=== PATIENT | female | born 1990 | race Two or more races ===

== ENCOUNTER 2016-07-22 12:16 | Emergency (ER) | payer MEDICAID ==
[~2016-07-22 12:16] MED LIST: ADVANCED PAIN200 MG PO; ADVIL MIGRAINE200 MG PO; CALCIUM CARBON500 M2 PO; CIPRO500 MG PO; COLACE100 M1 PO; COLACE100 MG PO; DULCOLAX10 MG RC; IBUPROFEN600 MG PO; IBUPROFEN800 M1 PO; MAG-AL PLUS XS30 M1 PO; MILK OF MAGNESIA PO; MOTRIN600 MG PO; NAUSEA; NO HOME MEDICATION XX; NORCO 5/325 TAB1 TAB PO; NORCO 7.5/3251 TA1 PO; PHENERGAN W/CO120 ML PO; PRENATAL-U CAPS1 CAP PO; PRENATAL1 EACH PO; PYRIDIUM200 M1 PO; SENOKOT-S TABL1 EACH PO; ZOFRAN ODT4 MG PO; ZOFRAN4 M1 PO; ZOFRAN4 MG PO; [UNRECOGNIZED DRUG - REMARK]
[2016-07-22] MEDS ORDERED: NO HOME MEDICATION (12:37)
[2016-07-22 13:28] LABS: BASO % 0.3 % (0-2); EOSINOPHIL ABSOLUTE COUNT 0.3 tho/cmm (0.0-0.7); HCT-HEMATOCRIT 35.5 % (34.0-49.0); HGB-HEMOGLOBIN 11.1 gm/dl (12.0-15.5); IMMATURE GRANULOCYTES ABSOLUTE 0.01 tho/cmm (0-0.03); IMMATURE GRANULOCYTES PERCENT 0.1 % (0-0.3); LYMPH % 38.6 % (20-45); LYMPH ABSOLUTE COUNT 2.7 tho/cmm (0.8-4.5); MCH (MEAN CORPUSCULAR HGB) 25.2 pg (28.0-32.0); MCHC MEAN CORPUSCULAR HGB CONC 31.3 % (32.0-36.0); MCV (MEAN CELL VOLUME) 80.7 fl (82.0-96.0); MEAN PLATELET VOLUME 11.8 cmc (9.4-12.4); MONO % 4.6 % (0-12); MONOCYTE ABSOLUTE COUNT 0.3 tho/cmm (0.0-1.2); NEUTROPHIL ABSOLUTE COUNT 3.6 tho/cmm (1.6-8.0); NEUTROPHIL-AUTOMATED 3.6 tho/cmm (1.6-8.0); NEUTROPHILS % 52.4 % (40-80); PLATELET COUNT 199 tho/cmm (150-450); RED CELL DISTRIBUTION WIDTH 15.9 % (12.4-16.4); WHITE BLOOD COUNT 6.9 tho/cmm (4.0-10.0)
[2016-07-22] MEDS ORDERED: KEFLEX500 M4 PO (14:33)
[2016-07-22] MEDS ORDERED: DELTASONE20 MG PO (14:33)
== END 2016-07-22 14:44 ==
LOC: EDMED 12:16
PROVIDERS: Emergency Medicine
DX: J02.9 Acute pharyngitis, unspecified (principal)
CPT/HCPCS: J7512